=== PATIENT | male | born 1990 | race Hispanic/Latino ===

== ENCOUNTER 2025-01-18 19:30 | Emergency (ER) | payer SELFPAY ==
[~2025-01-18] VITALS: Ht 172.7 cm; Wt 88.5 kg
[2025-01-18 19:40] VITALS: PULSE 81; RESP 16; TEMP 98.7; O2SAT 97
== END 2025-01-18 19:53 | disposition home or self-care (01) ==
LOC: ER 19:48
DX: D18.01 Hemangioma of skin and subcutaneous tissue (principal); F17.210 Nicotine dependence, cigarettes, uncomplicated
CPT/HCPCS: 99282